=== PATIENT | male | born 1975 | race Caucasian/White ===

== ENCOUNTER 2021-12-13 17:51 | Inpatient (IN) ==
[2021-12-13] MEDS ORDERED: Acetaminophen 325 MG TABLET PO PRN (21:53)
[2021-12-13] MEDS ORDERED: Ondansetron ODT 4 MG TAB.RAPDIS SL PRN (21:53)
[2021-12-13] MEDS ORDERED: Melatonin 3 MG TABLET PO PRN (21:53)
[2021-12-13] MEDS ORDERED: Naloxone 0.4 MG/ML INJ IVP PRN (21:53)
[2021-12-13] MEDS ORDERED: *HR* Dextrose 50 % in Water (Syg) 50 ML SYRINGE IVP PRN (21:59)
[2021-12-13] MEDS ORDERED: Dextrose 4 GM Chewable Tablets PO PRN ×2 (21:59)
[2021-12-13] MEDS: D5% in Water 1,000 ML IVC PRN (22:16)
[2021-12-13 22:29] LABS: Basophils # 0.1 K/mcL (0.0-0.2); Basophils % 0.7 %; Eosinophils # 0.6 K/mcL (0.0-0.6); Eosinophils % 5.2 %; Hemoglobin 11.3 g/dL (12.9-16.9); Immature Granulocytes % 0.3 % (0-4); Lymphocytes # 1.4 K/mcL (0.6-4.6); Lymphocytes % 12.6 %; Mean Corpuscular HGB Conc 31.4 g/dL (31.6-35.5); Mean Corpuscular Hemoglobin 25.3 pg (28.0-33.3); Mean Corpuscular Volume 80.5 fL (83.0-100.0); Monocytes # 0.7 K/mcL (0.0-1.3); Monocytes % 6.2 %; Neutrophils # 8.2 K/mcL (1.6-8.9); Platelet Count 256 K/mcL (140-400); Red Blood Count 4.47 M/mcL (4.19-5.50); Red Cell Distribution Width 17.6 % (11.5-14.5)
[2021-12-13 22:36] LABS: INR 1.1; Prothrombin Time 12.7 Seconds (9.4-12.1)
[2021-12-13 22:39] LABS: Activated Partial Thrombo Time 31.8 Seconds (26.0-36.0)
[2021-12-13 22:48] LABS: Alanine Aminotransferase 10 Units/L (7-52); Albumin 3.2 g/dL (3.5-5.7); Alkaline Phosphatase 38 Units/L (34-104); Aspartate Amino Transferase 12 Units/L (13-39); BUN/Creatinine Ratio 16 (6-26); Bilirubin,Total 0.3 mg/dL (0.3-1.0); Blood Urea Nitrogen 24 mg/dL (6-20); Carbon Dioxide 21 mEq/L (23-29); Chloride 105 mEq/L (98-107); Chol/HDL Ratio 7.7 (0-4.9); Cholesterol 131 mg/dL (< 200); Globulin 3.2 g/dL (2.4-3.5); Glucose 68 mg/dL (70-105); HDL Cholesterol 17 mg/dL (40-59); LDL Cholesterol,Calculated 64 mg/dL (< 100); Magnesium 1.6 mg/dL (1.6-2.6); Osmolality,Calculated 282 (280-300); Phosphorous 3.2 mg/dL (2.7-4.5); Potassium 3.9 mEq/L (3.5-5.1); Sodium 135 mEq/L (136-145); Total Protein 6.4 g/dL (6.4-8.9); Triglycerides 251 mg/dL (< 150); eGFR For African Americans > 60 (> 60); eGFR For Non-African Americans 52 (> 60)
[2021-12-13 23:03] LABS: Thyroid Stimulating Hormone 5.94 mcIU/mL (0.340-5.600)
[2021-12-13] MEDS: *HR* OxyCODONE/APAP 5/325 TABLET PO PRN (23:15)
[2021-12-13] MEDS: Nicotine 21 MG PATCH.TD24 TD SCH (23:16)
[2021-12-13] MEDS ORDERED: *HR* Heparin 5,000 UNIT/ML VIAL SQ SCH (23:30)
[2021-12-13 23:41] LABS: Bacteria,Urine Few per hpf (None-Few); Bilirubin,Urine Negative (Negative); Blood,Urine Small (Negative); Clarity,Urine Clear (Clear); Color,Urine Light-Yellow (Yellow); Glucose,Urine (UA) Normal (Normal); Ketones,Urine Negative (Negative); Leukocyte Esterase,Urine Large (Negative); Mucus,Urine Few per lpf (None-Few); Nitrite,Urine Negative (Negative); PH,Urine 6.5 pH Units (5.0-8.0); Protein,Urine Negative (Neg-Trace); RBC,Urine 15-30 per hpf (0-3); Specific Gravity,Urine 1.006 (1.010-1.025); Squamous Epithelial Cell,Urine Few per hpf (None-Few); Urobilinogen,Urine Normal (Normal); WBC,Urine 50-100 per hpf (0-3)
[2021-12-13 23:51] LABS: Protein/Creatinine Ratio,Urine 0.56 mg/mg (0.00-0.20)
[2021-12-13 23:51] LABS: Sodium, Urine 22.6 mEq/L
[2021-12-14] MEDS: Budesonide/Formoterol 160/4.5 1 PUFF INH IH SCH ×3 (01:30→20:55)
[2021-12-14] MEDS: Ipratropium/Albuterol Neb 3 ML IH SCH ×7 (01:30→23:51)
[2021-12-14] MEDS: *HR* OxyCODONE/APAP 5/325 TABLET PO PRN ×4 (03:26→20:28)
[2021-12-14] MEDS: Vancomycin 1,500 MG/265 ML IV.SOLN IVPB SCH ×2 (05:12→17:57)
[2021-12-14] MEDS: Levothyroxine 25 MCG TABLET PO SCH (05:12)
[2021-12-14] MEDS: D5% in Water 1,000 ML IVC PRN ×2 (07:57→17:57)
[2021-12-14] MEDS: Insulin LISPRO 300 UNITS/3 ML VIAL SUBQ SCH ×3 (07:57→17:57)
[2021-12-14] MEDS: cefTRIAXone 1,000 MG in Water for inj. (sterile) 10 ML IVP SCH (07:58)
[2021-12-14] MEDS: Nicotine 21 MG PATCH.TD24 TD SCH (08:00)
[2021-12-14] MEDS: Leptospermum Honey Paste 44 ML TUBE TP SCH (19:04)
[2021-12-15] MEDS: D5% in Water 1,000 ML IVC PRN ×2 (04:03→14:24)
[2021-12-15] MEDS: Ipratropium/Albuterol Neb 3 ML IH SCH ×6 (04:10→23:43)
[2021-12-15 05:21] LABS: Hemoglobin 10.8 g/dL (12.9-16.9); Mean Corpuscular HGB Conc 30.9 g/dL (31.6-35.5); Mean Corpuscular Hemoglobin 24.5 pg (28.0-33.3); Mean Corpuscular Volume 79.4 fL (83.0-100.0); Mean Platelet Volume 9.6 fL (9.4-12.4); Platelet Count 273 K/mcL (140-400); Red Blood Count 4.41 M/mcL (4.19-5.50); Red Cell Distribution Width 17.6 % (11.5-14.5); White Blood Count 10.1 K/mcL (4.3-11.1)
[2021-12-15] MEDS: Leptospermum Honey Paste 44 ML TUBE TP SCH ×2 (05:39→21:16)
[2021-12-15 05:49] LABS: BUN/Creatinine Ratio 13 (6-26); Blood Urea Nitrogen 15 mg/dL (6-20); Carbon Dioxide 23 mEq/L (23-29); Chloride 104 mEq/L (98-107); Glucose 149 mg/dL (70-105); Osmolality,Calculated 286 (280-300); Potassium 3.8 mEq/L (3.5-5.1); Sodium 136 mEq/L (136-145); eGFR For African Americans > 60 (> 60); eGFR For Non-African Americans > 60 (> 60)
[2021-12-15] MEDS: *HR* OxyCODONE/APAP 5/325 TABLET PO PRN ×4 (05:56→21:16)
[2021-12-15] MEDS: Levothyroxine 25 MCG TABLET PO SCH (05:56)
[2021-12-15] MEDS: Vancomycin 1,250 MG/262.5 ML IV.SOLN IVPB SCH ×2 (06:04→18:13)
[2021-12-15] MEDS: Vancomycin 1,500 MG/265 ML IV.SOLN IVPB SCH (06:05)
[2021-12-15] MEDS: Budesonide/Formoterol 160/4.5 1 PUFF INH IH SCH ×2 (08:24→19:45)
[2021-12-15] MEDS ORDERED: *HR* LORazepam 1 MG TABLET PO PRN (08:51)
[2021-12-15] MEDS: ARIPiprazole 10 MG TABLET PO SCH (09:33)
[2021-12-15] MEDS: cefTRIAXone 1,000 MG in Water for inj. (sterile) 10 ML IVP SCH (09:34)
[2021-12-15] MEDS: Fenofibrate 54 MG TABLET PO SCH (09:34)
[2021-12-15] MEDS: Nicotine 21 MG PATCH.TD24 TD SCH (09:35)
[2021-12-15] MEDS: Mirabegron [Myrbetriq] 50 MG Tab.Er.24h PO SCH (09:43)
[2021-12-16 03:17] LABS: Basophils # 0.1 K/mcL (0.0-0.2); Basophils % 0.9 %; Eosinophils # 0.4 K/mcL (0.0-0.6); Eosinophils % 4.1 %; Hematocrit 33.6 % (37.5-50.1); Hemoglobin 10.8 g/dL (12.9-16.9); Immature Granulocytes % 0.8 % (0-4); Mean Corpuscular HGB Conc 32.1 g/dL (31.6-35.5); Mean Corpuscular Hemoglobin 25.2 pg (28.0-33.3); Mean Corpuscular Volume 78.5 fL (83.0-100.0); Mean Platelet Volume 9.6 fL (9.4-12.4); Monocytes # 0.8 K/mcL (0.0-1.3); Monocytes % 8.4 %; Neutrophils # 5.9 K/mcL (1.6-8.9); Platelet Count 276 K/mcL (140-400); Red Blood Count 4.28 M/mcL (4.19-5.50); Red Cell Distribution Width 17.3 % (11.5-14.5); Segmented Neutrophils % 63.8 %; White Blood Count 9.2 K/mcL (4.3-11.1)
[2021-12-16] MEDS: *HR* OxyCODONE/APAP 5/325 TABLET PO PRN ×5 (03:18→22:43)
[2021-12-16] MEDS: Ipratropium/Albuterol Neb 3 ML IH SCH ×5 (03:28→20:05)
[2021-12-16 03:33] LABS: BUN/Creatinine Ratio 9 (6-26); Blood Urea Nitrogen 9 mg/dL (6-20); Carbon Dioxide 24 mEq/L (23-29); Chloride 106 mEq/L (98-107); Glucose 101 mg/dL (70-105); Osmolality,Calculated 283 (280-300); Potassium 3.1 mEq/L (3.5-5.1); Sodium 137 mEq/L (136-145); eGFR For African Americans > 60 (> 60); eGFR For Non-African Americans > 60 (> 60)
[2021-12-16 03:43] LABS: Estimated Average Glucose 108 mg/dl; Hemoglobin A1C 5.4 %
[2021-12-16] MEDS: Vancomycin 1,250 MG/262.5 ML IV.SOLN IVPB SCH ×2 (05:09→18:32)
[2021-12-16] MEDS: Levothyroxine 25 MCG TABLET PO SCH (05:09)
[2021-12-16] MEDS: Budesonide/Formoterol 160/4.5 1 PUFF INH IH SCH ×2 (07:29→20:05)
[2021-12-16] MEDS ORDERED: Potassium Chloride Elixir 20 MEQ/15 ML UDC PO ONE ×2 (07:44→10:15)
[2021-12-16] MEDS ORDERED: CefTRIAXone 1,000 MG VIAL ONE (08:53)
[2021-12-16] MEDS: ARIPiprazole 10 MG TABLET PO SCH (08:59)
[2021-12-16] MEDS: cefTRIAXone 1,000 MG in Water for inj. (sterile) 10 ML IVP SCH (09:00)
[2021-12-16] MEDS: Nicotine 21 MG PATCH.TD24 TD SCH (09:01)
[2021-12-16] MEDS: Mirabegron [Myrbetriq] 50 MG Tab.Er.24h PO SCH (09:01)
[2021-12-16] MEDS: Fenofibrate 54 MG TABLET PO SCH (09:01)
[2021-12-16] MEDS: Leptospermum Honey Paste 44 ML TUBE TP SCH ×2 (09:03→22:59)
[2021-12-17] MEDS: Ipratropium/Albuterol Neb 3 ML IH SCH ×4 (00:47→11:15)
[2021-12-17 01:29] LABS: Basophils # 0.1 K/mcL (0.0-0.2); Basophils % 0.8 %; Eosinophils # 0.4 K/mcL (0.0-0.6); Hematocrit 33.2 % (37.5-50.1); Hemoglobin 10.8 g/dL (12.9-16.9); Immature Granulocytes % 0.9 % (0-4); Lymphocytes # 2.1 K/mcL (0.6-4.6); Lymphocytes % 19.4 %; Mean Corpuscular HGB Conc 32.5 g/dL (31.6-35.5); Mean Corpuscular Hemoglobin 25.6 pg (28.0-33.3); Mean Corpuscular Volume 78.7 fL (83.0-100.0); Mean Platelet Volume 10.1 fL (9.4-12.4); Monocytes # 0.9 K/mcL (0.0-1.3); Monocytes % 8.1 %; Neutrophils # 7.1 K/mcL (1.6-8.9); Platelet Count 297 K/mcL (140-400); Red Blood Count 4.22 M/mcL (4.19-5.50); Red Cell Distribution Width 17.2 % (11.5-14.5); Segmented Neutrophils % 66.8 %; White Blood Count 10.6 K/mcL (4.3-11.1)
[2021-12-17] MEDS: *HR* OxyCODONE/APAP 5/325 TABLET PO PRN ×2 (04:21→08:56)
[2021-12-17] MEDS: Levothyroxine 25 MCG TABLET PO SCH (05:37)
[2021-12-17] MEDS: Vancomycin 1,250 MG/262.5 ML IV.SOLN IVPB SCH (05:42)
[2021-12-17 06:04] LABS: BUN/Creatinine Ratio 8 (6-26); Blood Urea Nitrogen 8 mg/dL (6-20); Carbon Dioxide 25 mEq/L (23-29); Chloride 105 mEq/L (98-107); Glucose 113 mg/dL (70-105); Osmolality,Calculated 283 (280-300); Sodium 137 mEq/L (136-145); eGFR For African Americans > 60 (> 60); eGFR For Non-African Americans > 60 (> 60)
[2021-12-17] MEDS: Budesonide/Formoterol 160/4.5 1 PUFF INH IH SCH (07:16)
[2021-12-17] MEDS ORDERED: Potassium Chloride Elixir 20 MEQ/15 ML UDC PO ONE (08:39)
[2021-12-17] MEDS: Fenofibrate 54 MG TABLET PO SCH (08:55)
[2021-12-17] MEDS: ARIPiprazole 10 MG TABLET PO SCH (08:56)
[2021-12-17] MEDS: Leptospermum Honey Paste 44 ML TUBE TP SCH (08:57)
[2021-12-17] MEDS: cefTRIAXone 1,000 MG in Water for inj. (sterile) 10 ML IVP SCH (08:58)
[2021-12-17] MEDS: Nicotine 21 MG PATCH.TD24 TD SCH (08:58)
[2021-12-17 11:14] VITALS: BP 117/69; PULSE 99; TEMP 98.5; O2SAT 91
[2021-12-17] MEDS ORDERED: levoFLOXacin 750 MG TABLET PO ONE (11:16)
== END 2021-12-17 13:26 | disposition home or self-care (01) | DRG 871 ==
LOC: 3NENU → SUATTDRO 21:37
PROVIDERS: ADMIT Internal Medicine; ATTEND Family Medicine